=== PATIENT | female | born 1965 | race Caucasian/White ===

== ENCOUNTER 2021-05-30 22:47 | Emergency (ER) | payer MEDICARE ==
[2021-05-31 00:42] LABS: HEMOGLOBIN 14.6 gm/dl (12.3-15.3); RED BLOOD COUNT 4.68 M/UL (4.00-5.10); WHITE BLOOD COUNT 6.7 K/UL (4.5-11.0)
[2021-05-31 01:00] LABS: BUN/CREATININE RATIO 14 (0-10)
[2021-05-31] MEDS ORDERED: AZITHROMYCIN250 MG PO (03:59)
== END 2021-05-31 04:04 | disposition home or self-care (01) ==
LOC: ER1 22:47
PROVIDERS: Family Medicine
DX: U07.1 COVID-19 (principal); Z23 Encounter for immunization; E78.5 Hyperlipidemia, unspecified; E11.9 Type 2 diabetes mellitus without complications; I10 Essential (primary) hypertension; Z90.49 Acquired absence of other specified parts of digestive tract; Z90.710 Acquired absence of both cervix and uterus; Z88.0 Allergy status to penicillin; Z79.1 Long term (current) use of non-steroidal anti-inflammatories (NSAID)
CPT/HCPCS: 36600; 71045; 80053; 81001; 82803; 83605; 83880; 85025; 87040; 93005; 99284; J7030; M0243; U0002